=== PATIENT | female | born 1965 | race Caucasian/White ===

== ENCOUNTER → 2023-08-16 14:56 | Outpatient (REF) | payer OTHER, SELFPAY | LOC: RAD 14:56 | PROVIDERS: ATTENDING PHYSICIAN Family Medicine | DX: R59.0 Localized enlarged lymph nodes (principal) | CPT/HCPCS: 76536 ==

== ENCOUNTER → 2024-12-11 09:13 | Outpatient (REF) | payer OTHER, SELFPAY | LOC: WDC 09:13 | PROVIDERS: ATTENDING PHYSICIAN Nurse Practitioner Adult Health; FAMILY PHYSICIAN Family Medicine | DX: N64.4 Mastodynia (principal); R92.2 Inconclusive mammogram | CPT/HCPCS: 76642; 77062; 77066 ==

== ENCOUNTER → 2025-01-07 11:10 | Outpatient (REF) | payer OTHER, SELFPAY | LOC: RAD 11:10 | PROVIDERS: ATTENDING PHYSICIAN Student in an Organized Health Care Education/Training Program; FAMILY PHYSICIAN Family Medicine | DX: R51.9 Headache, unspecified (principal) | CPT/HCPCS: 70486 ==

== ENCOUNTER 2025-02-10 06:21 | Day surgery (SDC) | payer OTHER, SELFPAY ==
[2025-01-27 12:10] LABS: Hematocrit 42.4 % (37.0-47.0); Hemoglobin 13.8 g/dL (12.0-16.0); Mean Corp Hgb Conc. 32.5 g/dL (33.0-37.0); Mean Corpuscular Volume 85.8 fL (81.0-99.0); Platelet Count 248 10^3/uL (130-400); Red Cell Dist. Width 13.4 % (11.5-14.5)
[2025-01-27 12:53] LABS: Blood Urea Nitrogen 15 mg/dl (7-17); Calcium 9.3 mg/dl (8.4-10.2); Carbon Dioxide 30 mmol/L (22-30); Chloride 103 mmol/L (98-107); Glucose 85 mg/dl (70-99); Potassium 4.2 mmol/L (3.5-5.1); Sodium 137 mmol/L (135-145); eGFR > 60.00
[2025-01-27 14:09] VITALS: BMI 24.5
[2025-02-10] VITALS (12 sets, daily range): BP systolic 130–149; BP diastolic 7–86; BMI 24.5
[2025-02-10] MEDS: NORMOSOL-R/PLASMALYTE-A 1000 IV (10:15)
--- NOTE | 2025-02-10 15:43 | OR.RPT ---
Operative Report
Operative Report
Patient name: Maxine Nichols
: 1965

Date of operation: 02/10/2025
Preoperative diagnosis: Eustachian tube dysfunction, left chronic serous otitis media, deviated nasal septum, inferior turbinate hypertrophy, nasal obstruction, chronic maxillary sinusitis, chronic ethmoid sinusitis
Postoperative diagnosis: Same
Procedures performed: Left myringotomy and tube placement, septoplasty, inferior turbinate reduction, bilateral maxillary antrostomy with tissue removal, bilateral anterior ethmoidectomy
Surgeon: Andrew Vergara,
Anesthesiologist: Leela
Anesthesia: General, ETT
Surgical indications: Maxine is a 59-year-old woman with a longstanding history of right chronic maxillary sinusitis who presented to the otolaryngology department in December 2024 with a chief complaint of clogged left ear, nasal obstruction and
facial pain and pressure. She was started on medical therapy with intranasal corticosteroids, saline rinses and antihistamines that did not help symptoms. She underwent a CT sinus which demonstrated complete opacification of the right maxillary
sinus, partial hypoplastic right maxillary sinus, bilateral anterior ethmoid sinusitis, severely deviated nasal septum and inferior turbinate hypertrophy. Findings were all worse compared to prior CT in 2018. We discussed the risks benefits to
continued medical management versus surgical intervention with the above listed procedures and she provided informed written consent.
Details of procedure: Maxine was met in the preoperative holding area where informed written consent was reviewed, addended to include the endoscopic sinus surgery and all questions were answered. She was then brought back to the operating room and
transferred supine on the operating room table. A safety strap and SCDs were placed. General anesthesia was induced and she was intubated orotracheally without difficulty by the anesthesia team. A surgical timeout was then performed confirming
the necessary perioperative information. The operating microscope was then brought into the surgical field and focused on the left ear. A size 5 speculum was placed to visualize the tympanic membrane. The tympanic membrane was intact with normal
landmarks. The middle ear appeared dry. A myringotomy knife was then used to make an incision in the inferior region of the tympanic membrane. The middle ear was dry which was confirmed by suction. A Malave 1.14mm ID myringotomy tube with a wire
trimmed and removed was placed through the myringotomy without issue. Ciprofloxacin drops were then applied for prophylaxis. This concluded the myringotomy and ear portion of the surgery.
The table was then rotated 90 degrees away from anesthesia. Pledgets soaked in topical 4% cocaine were placed in the bilateral nasal cavities while the remainder of the equipment was set up. 1% lidocaine with epinephrine 1 100,000 was then used to
infiltrate the bilateral nasal cavities and septum and turbinates. A total of 15 cc was used. Then a #15 blade was used to make a stab incision in the anterior head of each inferior turbinate. A Katie elevator was then used to establish a
submucous pocket along the length of the inferior turbinates. A microdebrider turbinate blade was then used to perform submucous resection. The turbinates were outfractured using a Brandon bar. Hemostasis was confirmed. Next a #15 blade was used
to make a hemitransfixion incision on the left caudal aspect of the nasal septum. A [place] elevator, iris scissor and 15 blade were then used to establish a submucoperichondrial pocket. The [place] elevator was then used to raise a
submucoperichondrial flap from anterior to posterior and superior to inferior along the left side of the nasal septum. Once the flap was adequately raised, a #15 blade was then used to make a trans cartilaginous cut approximately 1.5 cm distal from
the caudal aspect of the nasal septum. A Katie elevator was then used to establish the contralateral submucoperichondrial plane. Once the cartilaginous and bony septum were isolated from the mucosal flaps, a [place] elevator, double-action
rongeur, dorsal scissor and Sommer forcep were used to remove deviated portions of cartilage and bone including spurs. A 4 mm osteotome and mallet were used to resect deviated portions of the maxillary crest. The nasal airway was greatly
improved after this. The flaps were laid down bilaterally and this was confirmed and the nasopharynx was clearly visualized. Next a 4-0 chromic was used to close the hemitransfixion incision in a simple interrupted fashion. A 4-0 plain gut suture
on a Miguel needle was used to perform a quilting stitch.
The image guidance system was then traced out, calibrated and set up to confirm adequate use for the case.
Next an additional total of 7 cc of 1% lidocaine with epinephrine 1 100,000 was used to infiltrate the bilateral middle turbinates lateral nasal hurst and axilla of the middle turbinates. The right sided endoscopic sinus surgery was performed first
as this is where the majority of pathology was. A curved ball-tipped probe was used to gently medialized the right middle turbinate and identify where the uncinate process was. A combination of turbinate scissor and up-biting Fernando-Cut forcep were
used to perform a right partial middle turbinectomy. This was completed with a microdebrider. Next a curved ball-tipped probe and a backbiter to the left were used to perform a right uncinectomy. Care was taken here to avoid the orbit as it lie
in a lower position than normal. Entry into the right maxillary sinus was confirmed with image guidance. The maxillary antrostomy was then performed with a backbiter to the left and completed with a microdebrider. Edematous and polypoid tissue
was removed from the right maxillary sinus. Next using a straight suction with an image guidance tracker on it, entry into the ethmoid bulla was performed in an inferior medial fashion. The ethmoid bulla and several small adjacent anterior ethmoid
air cells were debrided with a microdebrider. This completed the right side of the operation. Next attention was turned to the left side where again an up-biting Fernando-Cut forcep and turbinate scissors were used to perform a partial left middle
turbinectomy. A curved ball-tipped seeker was used to identify and confirm the uncinate process and entry into the left maxillary sinus. A backbiter to the right was used to perform the left uncinectomy and this was completed with a microdebrider.
A backbiter to the right and a up-biting Fernando-Cut and microdebrider were used to perform the left maxillary antrostomy and tissue removal. The left ostiomeatal complex was narrow, edematous and obstructing outflow of the left maxillary sinus as
well as anterior ethmoid cells. A straight suction with an image guidance tracker was then used to enter the left ethmoid bulla and an inferior medial fashion. The ethmoid bulla and several adjacent small anterior ethmoid air cells were removed
with the microdebrider. This completed the endoscopic sinus surgery. On the right side, a standard straight propel steroid coated stent was placed in the right anterior ethmoid cells. A NasoPore hemostatic gauze was placed in the center of this.
A contour steroid coated stent was placed in the right maxillary ostomy. A NasoPore was placed in the left anterior ethmoid cavity. Silicone Dillard splints with the nasal send 2 drains were then placed in the bilateral nasal cavities and sewn in
place with 2-0 silk suture transseptally. This concluded the procedure.
The patient was then rotated back to the anesthesia team where she emerged safely and was extubated without difficulty. She was taken the PACU in stable condition.
Specimens: Septal contents, sinus contents
Estimated blood loss: 10 cc
Complications: None immediately present
Disposition: Stable to PACU followed by discharge to home.
[2025-02-10] MEDS: DILAUDID 0.25 MG IV (16:16)
[2025-02-10] MEDS: ZOFRAN 4 MG IV ×2 (16:46→19:22)
[2025-02-10] MEDS: DILAUDID 0.5 MG IV (16:48)
[2025-02-10] MEDS: ROXICODONE 5 MG PO (19:12)
== END 2025-02-10 19:30 | disposition home or self-care (01) ==
LOC: SDS 06:21
PROVIDERS: ATTENDING PHYSICIAN Student in an Organized Health Care Education/Training Program; FAMILY PHYSICIAN Family Medicine
DX: H69.92 Unspecified Eustachian tube disorder, left ear (principal); H65.22 Chronic serous otitis media, left ear; J32.0 Chronic maxillary sinusitis; J32.2 Chronic ethmoidal sinusitis
CPT/HCPCS: 31254; 30140; 30520; 31267; 69436; 36415; 80048; 85027; 88300; 88304; 88311; 93005; C2625